=== PATIENT | male | born 1975 | race African-American/Black ===

== ENCOUNTER 2019-03-19 20:17 | Inpatient (IN) | payer BC, OTHER ==
[2019-03-19 21:17] LABS: ABSOLUTE BASOPHILS # (AUTO) 0.1 10^3/uL (0.0-0.2); ABSOLUTE EOSINOPHILS # (AUTO) 0.3 10^3/uL (0.0-0.6); ABSOLUTE LYMPHOCYTES (AUTO) 2.4 10^3/uL (0.5-4.7); ABSOLUTE MONOCYTES (AUTO) 0.7 10^3/uL (0.1-1.4); ABSOLUTE NEUT (AUTO) 7.9 10^3/uL (1.7-8.2); BASOPHILS % (AUTO) 1.2 % (0-2); EOSINOPHILS % (AUTO) 2.6 % (0-6); HEMOGLOBIN 14.4 g/dL (13.5-17.0); LYMPHOCYTES % (AUTO) 20.9 % (13-45); MEAN CORPUSCULAR HGB CONC 33.5 g/dL (32.0-36.0); MEAN CORPUSCULAR VOLUME 86 fl (80-97); MONOCYTES % (AUTO) 5.9 % (3-13); PLATELET COUNT 170 10^3/uL (150-450); RED BLOOD COUNT 4.98 10^6/uL (4.35-5.55); RED CELL DISTRIBUTION WIDTH 12.8 % (11.5-14.0); SEGMENTED NEUTROPHILS % (AUTO) 69.4 % (42-78); TOTAL CELLS COUNTED % (AUTO) 100 %; WHITE BLOOD COUNT 11.4 10^3/uL (4.0-10.5)
[2019-03-19 21:34] LABS: INTERNATIONAL RATION (INR) 1.02; PROTHROMBIN TIME 13.4 SEC (11.4-15.4)
[2019-03-19 21:35] LABS: ALBUMIN 4.2 g/dL (3.5-5.0); ALKALINE PHOSPHATASE 67 U/L (38-126); ANION GAP 11 (5-19); ASPARTATE AMINO TRANSFERASE 24 U/L (17-59); BILIRUBIN,DIRECT 0.1 mg/dL (0.0-0.4); BILIRUBIN,TOTAL 0.7 mg/dL (0.2-1.3); BLOOD UREA NITROGEN 24 mg/dL (7-20); CALCIUM 9.1 mg/dL (8.4-10.2); CARBON DIOXIDE 26 mmol/L (22-30); CHLORIDE 103 mmol/L (98-107); GLUCOSE 93 mg/dL (75-110); POTASSIUM 3.8 mmol/L (3.6-5.0); TOTAL PROTEIN 7.2 g/dL (6.3-8.2)
--- NOTE | 2019-03-19 21:47 | RADIOLOGY REPORT (SQ) ---
XR CHEST 1 VIEW CLINICAL STATEMENT: stroke protocol COMPARISON: None FINDINGS: Heart is moderately enlarged. Aorta is uncoiled. There is no focal lung consolidation or pleural effusion. No evidence of pulmonary edema or pneumothorax. IMPRESSION: No acute cardiopulmonary disease.
--- NOTE | 2019-03-19 22:08 | RADIOLOGY REPORT (SQ) ---
CT HEAD WITHOUT IV CONTRAST EXAM DATE: 03/19/2019 9:03 PM CDT HISTORY: L sided facial numbness, and arm numbness. COMPARISON: None. TECHNIQUE: CT scan of the brain without IV contrast. This exam was performed according to our departmental dose-optimization program, which includes automated exposure control, adjustment of the mA and/or kV according to patient size and/or use of iterative reconstruction technique. FINDINGS: The ventricles, cisterns, and sulci are age-appropriate. No evidence of acute infarction, intracranial hemorrhage, extra-axial fluid collection, or midline shift. No air-fluid levels are seen in the paranasal sinuses to suggest acute sinusitis. No depressed skull fracture. IMPRESSION: No acute intracranial findings.
--- NOTE | 2019-03-19 22:13 | ER Document Report ---
ED General - General Chief Complaint: Numbness of Face Stated Complaint: TINGLING TO FACE AND HANDS Time Seen by Provider: 03/19/19 21:02 TRAVEL OUTSIDE OF THE [place] IN LAST 30 DAYS: No - HPI Notes: Patient presents from work prior to arrival began to experience tingling left side of his face and tingling and numbness in his left upper and lower extremity and then he developed a motor weakness in his left lower extremity causing him to fall. He was able to hobble to the office and then his symptoms were relieved within 3 to 5 minutes without intervention. He had similar symptoms approximately 3 days ago lasted 1 to 2 minutes. He has a history of uncontrolled hypertension is not on any blood pressure medication. - Related Data Allergies/Adverse Reactions: No Known Allergies Allergy (Unverified 10/03/14 08:38) Past Medical History - Social History Smoking Status: Never Smoker Family History: Hypertension. denies: None, Reviewed & Not Pertinent, Arthrit is, CAD, CVA, DM, Hyperlipidemia, Malignancy, Thyroid Disfunction, Other Patient has suicidal ideation: No Patient has homicidal ideation: No - Past Medical History Cardiac Medical History: Reports: Hx Hypertension - reports was previously diagnosed with HTN but never treated - Immunizations Immunizations up to date: Yes Hx Diphtheria, Pertussis, Tetanus Vaccination: Yes Review of Systems - Review of Systems Constitutional: No symptoms reported EENT: No symptoms reported Cardiovascular: No symptoms reported Respiratory: No symptoms reported Gastrointestinal: No symptoms reported Genitourinary: No symptoms reported Male Genitourinary: No symptoms reported Musculoskeletal: No symptoms reported Skin: No symptoms reported Hematologic/Lymphatic: No symptoms reported Neurological/Psychological: See HPI Physical Exam - Vital signs Vitals: Temp Pulse Resp BP Pulse Ox 98.8 F 107 H 18 222/152 H 96 03/19/19 20:32 03/19/19 20:32 03/19/19 20:32 03/19/19 20:32 03/19/19 20:32 - General General appearance: Appears well, Alert - HEENT Head: Normocephalic Eyes: Normal Conjunctiva: Normal Cornea: Normal Extraocular movements intact: Yes Pupils: PERRL - Respiratory Respiratory status: No respiratory distress Chest status: Nontender Breath sounds: Normal - Cardiovascular Rhythm: Regular Heart sounds: Normal auscultation Murmur: No - Abdominal Inspection: Normal Distension: No distension Bowel sounds: Normal - Extremities General upper extremity: Normal inspection, Normal ROM General lower extremity: Normal inspection, Normal ROM - Neurological Neuro grossly intact: Yes Cognition: Normal Orientation: AAOx4 Speech: Normal Cranial nerves: Normal Cerebellar coordination: Normal Course - Re-evaluation Re-evalutation: 03/19/19 22:31 admit for TIA, hypertensive emergency - Vital Signs Vital signs: Temp Pulse Resp BP Pulse Ox 98.8 F 79 16 226/130 H 98 03/19/19 20:32 03/19/19 21:24 03/19/19 21:24 03/19/19 21:24 03/19/19 21:24 - Laboratory Result Diagrams: 03/19/19 20:57 03/19/19 20:57 Laboratory results interpreted by me: 03/19/19 03/19/19 20:57 20:57 WBC 11.4 H BUN 24 H Creatinine 2.04 H Est GFR ( Amer) 43 L Est GFR (MDRD) Non-Af 35 L - EKG Interpretation by Al EKG shows normal: Sinus rhythm Rate: Normal Rhythm: NSR Discharge - Discharge Clinical Impression: TIA (transient ischemic attack) Condition: Good Disposition: ADMITTED INPATIENT Admitting Provider: Paty (Hospitalist)
[2019-03-19] MEDS ORDERED: ASPIRIN 325 MG TABLET PO ONE (22:30)
[2019-03-19] MEDS ORDERED: LABETALOL HCL INJ 20 MG/4 ML DISP.SYRIN IV ONE (22:31)
[2019-03-19] MEDS ORDERED: NICARDIPINE HCL RTU, ISO-OS 20 MG/200 ML RTUINJ IV PRN ×2 (22:33→23:23)
[2019-03-19] MEDS ORDERED: ACETAMINOPHEN 325 MG TABLET PO PRN (23:14)
[2019-03-19] MEDS ORDERED: ONDANSETRON HCL INJ/PF 4 MG/2 ML SDV IV PRN (23:14)
[2019-03-19] MEDS ORDERED: ONDANSETRON 4 MG TAB.RAPDIS PO PRN (23:14)
[2019-03-19] MEDS ORDERED: TRAMADOL HCL 50 MG TABLET PO PRN (23:14)
[2019-03-19] MEDS ORDERED: TEMAZEPAM 15 MG CAPSULE PO PRN (23:14)
[2019-03-19] MEDS ORDERED: DOCUSATE SODIUM 100 MG CAPSULE PO PRN (23:14)
[2019-03-19] MEDS ORDERED: MAGNESIUM HYDROXIDE SUSP 30 ML UDCUP PO PRN (23:14)
[2019-03-20] MEDS: RINGERS SOLUTION,LACTATED 1,000 ML IV PRN ×2 (00:51→09:18)
[2019-03-20 01:16] LABS: APPEARANCE,URINE CLEAR; BILIRUBIN,URINE NEGATIVE (NEGATIVE); COLOR,URINE STRAW; GLUCOSE, URINE NEGATIVE (NEGATIVE); KETONES,URINE NEGATIVE (NEGATIVE); LEUKOCYTE ESTERASE,URINE NEGATIVE (NEGATIVE); NITRITE,URINE NEGATIVE (NEGATIVE); PROTEIN,URINE 100 mg/dL (NEGATIVE); URINE SPECIFIC GRAVITY 1.011; UROBILINOGEN,URINE NEGATIVE mg/dL (<2.0)
[2019-03-20] MEDS ORDERED: LOSARTAN POTASSIUM 50 MG TABLET PO ONE (02:00)
[2019-03-20] MEDS ORDERED: METOPROLOL TARTRATE 100 MG TABLET PO ONE (02:00)
--- NOTE | 2019-03-20 02:09 | PDOC H&P ---
History of Present Illness Admission Date/PCP: 03/19/2019 22:45 No local PCP Patient complains of: Left-sided tingling and weakness History of Present Illness: KELLEN TOBIAS is a 43 year old male who presented to the emergency room with acute tingling and weakness. Patient admitted to developing the abrupt onset of tingling involving his left face left upper extremity and extending into his left lower extremity. The tingling was followed within seconds by a noticeable weakness of his left lower extremity causing him to fall when he tried to initiate walking. The symptoms lasted for 3 to 5 minutes before resolving spontaneously. He admits a similar episode lasting 1 to 2 minutes 3 days earlier that was not accompanied by muscular (motor) weakness. He denies identification of any aggravating or ameliorating factors for his tingling and weakness. In the emergency room he was found to have a CT scan negative for acute intracranial hemorrhage and an otherwise unremarkable laboratory evaluation. He was noted to be severely hypertensive with an initial blood pressure of 226/130 requiring treatment with a nicardipine infusion. Patient was subsequently admitted to the ICU for further evaluation and treatment. Past Medical History Cardiac Medical History: Reports: Hypertension - reports was previously diagnosed with HTN but never treated Denies: Coronary Artery Disease, Myocardial Infarction Pulmonary Medical History: Denies: Asthma, Chronic Obstructive Pulmonary Disease (COPD) EENT Medical History: Denies: Cataracts, Ears - Hearing aids Neurological Medical History: Reports: Other - Daily headache x10 years Denies: Hemorrhagic CVA, Ischemic CVA, Migraine, Multiple Sclerosis, Seizures Endocrine Medical History: Reports: Obesity Denies: Diabetes Mellitus Type 1, Diabetes Mellitus Type 2, Hyperthyroidism, Hypothyroidism Renal/ Medical History: Denies: Chronic Kidney Disease, Nephrolithiasis Malignancy Medical History: Reports: None GI Medical History: Denies: Cirrhosis, Hepatitis Musculoskeltal Medical History: Denies: Arthritis, Gout Skin Medical History: Denies: Eczema, Psoriasis Psychiatric Medical History: Denies: Alcohol Dependency, Substance Abuse, Tobacco Dependency Traumatic Medical History: Reports: None Hematology: Denies: Anemia, Bleeding Tendencies Infectious Medical History: Reports: None Past Surgical History Past Surgical History: Reports: None Social History Information Source: Patient Lives with: Friend Smoking Status: Never Smoker Frequency of Alcohol Use: Occasional Hx Recreational Drug Use: No Drugs: None Hx Prescription Drug Abuse: No - Advance Directive Resuscitation Status: Full Code Surrogate healthcare decision maker:: Tony Smiley Family History Family History: CAD, CVA, DM, Hypertension. denies: Arthritis, Hyperlipidemia, Malignancy, Thyroid Disfunction Parental Family History Reviewed: Yes Children Family History Reviewed: No Sibling(s) Family History Reviewed.: Yes Medication/Allergy Home Medications: Lisinopril/Hydrochlorothiazide [Lisinopril-Hctz 20-12.5 mg Tab] 1 each PO DAILY #30 tablet 10/03/14 Allergies/Adverse Reactions: No Known Allergies Allergy (Unverified 10/03/14 08:38) Review of Systems Constitutional: ABSENT: chills, fever(s) Eyes: ABSENT: visual disturbances, other - Eye pain Ears: ABSENT: hearing changes, other - Ear pain Nose, Mouth, and Throat: ABSENT: mouth pain, sore throat Cardiovascular: ABSENT: chest pain, palpitations Respiratory: ABSENT: cough, dyspnea Gastrointestinal: ABSENT: abdominal pain, constipation, diarrhea, nausea, vomiting Genitourinary: ABSENT: dysuria, hematuria Musculoskeletal: ABSENT: back pain, joint swelling Integumentary: ABSENT: pruritus, rash Neurological: PRESENT: as per HPI, focal weakness, numbness, tingling. ABSENT: abnormal speech, confusion, convulsions, syncope Psychiatric: ABSENT: anxiety, depression Endocrine: ABSENT: cold intolerance, heat intolerance Hematologic/Lymphatic: ABSENT: easy bleeding, easy bruising Allergic/Immunologic: ABSENT: seasonal rhinorrhea Physical Exam Vital Signs: Temp Pulse Resp BP Pulse Ox 98.8 F 79 16 226/130 H 98 03/19/19 20:32 03/19/19 21:24 03/19/19 21:24 03/19/19 21:24 03/19/19 21:24 Intake & Output 03/17/19 03/18/19 03/19/19 23:59 23:59 23:59 Weight 98.6 kg General appearance: PRESENT: no acute distress, cooperative Head exam: PRESENT: atraumatic, normocephalic Eye exam: PRESENT: conjunctiva pink. ABSENT: conjunctival injection, nystagmus, scleral icterus Ear exam: PRESENT: normal external ear exam. ABSENT: bleeding, drainage Mouth exam: PRESENT: dry mucosa, neck supple Neck exam: ABSENT: thyromegaly, tracheal deviation Respiratory exam: PRESENT: clear to auscultation natali, symmetrical, unlabored Cardiovascular exam: PRESENT: RRR. ABSENT: clicks, gallop, rubs Pulses: PRESENT: normal radial pulses, normal dorsalis pedis pul Vascular exam: PRESENT: normal capillary refill. ABSENT: pallor GI/Abdominal exam: PRESENT: normal bowel sounds, soft Rectal exam: PRESENT: deferred Extremities exam: ABSENT: joint swelling, pedal edema Musculoskeletal exam: PRESENT: full ROM, normal inspection Neurological exam: PRESENT: alert, oriented to person, oriented to place, oriented to time, oriented to situation, CN II-XII grossly intact. ABSENT: motor sensory deficit Psychiatric exam: PRESENT: appropriate affect, normal mood Skin exam: PRESENT: dry, intact, warm. ABSENT: jaundice, rash, urticaria Results Laboratory Results: 03/19/19 20:57 03/19/19 20:57 03/19/19 03/19/19 20:57 20:57 WBC 11.4 H RBC 4.98 Hgb 14.4 Hct 43.0 MCV 86 MCH 29.0 MCHC 33.5 RDW 12.8 Plt Count 170 Seg Neutrophils % 69.4 Sodium 139.6 Potassium 3.8 Chloride 103 Carbon Dioxide 26 Anion Gap 11 BUN 24 H Creatinine 2.04 H Est GFR ( Amer) 43 L Glucose 93 Calcium 9.1 Magnesium 1.9 Total Bilirubin 0.7 AST 24 Alkaline Phosphatase 67 Total Protein 7.2 Albumin 4.2 03/19/19 20:57 Troponin I 0.048 Impressions: Head CT 03/19/19 21:03 IMPRESSION: No acute intracranial findings. Chest X-Ray 03/19/19 21:04 IMPRESSION: No acute cardiopulmonary disease. Assessment and Plan - Diagnosis (1) Hypertensive urgency Is this a current diagnosis for this admission?: Yes Plan: Patient is admitted to the ICU with a nicardipine infusion from the ER. He will be converted to oral antihypertensive agents over the early course of his hospitalization. His blood pressure be monitored closely but permissive hypertension in the systolic blood pressure 130-160 range and diastolic blood pressure in the 90-100 range will not be treated unless the patient has neurologic symptoms associated with the elevated blood pressure. LVH will be evaluated with a echocardiogram and initial treatment of patient's hypertension will be directed at minimizing left ventricular hypertrophy and the risk of congestive heart failure. (2) TIA (transient ischemic attack) Is this a current diagnosis for this admission?: Yes Plan: Patient will have a MRI of the head, MRA of the neck and an echocardiogram performed as part of his routine evaluation. He has been placed on the stroke protocol with frequent neurologic evaluations on an ongoing basis. Patient has been given aspirin in the emergency room and will be continued on Plavix. (3) Chronic renal failure, stage 3 (moderate) Is this a current diagnosis for this admission?: Yes Plan: Patient's renal failure will be considered in all treatments and therapeutic situations. A nephrology consultation will be obtained. (4) Leukocytosis Qualifiers: Leukocytosis type: unspecified Qualified Code(s): D72.829 - Elevated white blood cell count, unspecified Is this a current diagnosis for this admission?: Yes Plan: Patient's CBC will be monitored on a daily basis throughout his hospital stay. (5) Elevated troponin I level Is this a current diagnosis for this admission?: Yes Plan: Serial troponin levels will be obtained and appropriate intervention will be undertaken should there be continued rise in troponin clinically significant level. - Time Time Spent with patient: 25-34 minutes Medications reviewed and adjusted accordingly: No - No home medications - Inpatient Certification Based on my medical assessment, after consideration of the patient's comorbidities, presenting symptoms, or acuity I expect that the services needed warrant INPATIENT care.: Yes I certify that my determination is in accordance with my understanding of Medicare's requirements for reasonable and necessary INPATIENT services [42 CFR 412.3e].: Yes Medical Necessity: Need Close Monitoring Due to Risk of Patient Decompensation, Need For Continuous Telemetry Monitoring, Need for Neurological Checks, Risk of Complication if Not Cared For in Hospital, Risk of Diagnosis Which Will Require Inpatient Eval/Care/Monitoring
[2019-03-20 02:58] LABS: HEMATOCRIT 42.9 % (37.9-51.0); HEMOGLOBIN 14.4 g/dL (13.5-17.0); MEAN CORPUSCULAR HEMOGLOBIN 28.9 pg (27.0-33.4); MEAN CORPUSCULAR HGB CONC 33.5 g/dL (32.0-36.0); MEAN CORPUSCULAR VOLUME 86 fl (80-97); PLATELET COUNT 154 10^3/uL (150-450); RED BLOOD COUNT 4.98 10^6/uL (4.35-5.55); WHITE BLOOD COUNT 10.9 10^3/uL (4.0-10.5)
[2019-03-20 03:10] LABS: ALBUMIN 3.8 g/dL (3.5-5.0); ALKALINE PHOSPHATASE 64 U/L (38-126); ANION GAP 7 (5-19); ASPARTATE AMINO TRANSFERASE 22 U/L (17-59); BILIRUBIN,DIRECT 0.1 mg/dL (0.0-0.4); BILIRUBIN,TOTAL 1.2 mg/dL (0.2-1.3); BLOOD UREA NITROGEN 20 mg/dL (7-20); CALCIUM 8.8 mg/dL (8.4-10.2); CARBON DIOXIDE 26 mmol/L (22-30); CHLORIDE 104 mmol/L (98-107); CHOLESTEROL 206.97 mg/dL (0-200); CREATINE KINASE 362 U/L (55-170); GLUCOSE 111 mg/dL (75-110); POTASSIUM 3.3 mmol/L (3.6-5.0); TOTAL PROTEIN 6.6 g/dL (6.3-8.2); TRIGLYCERIDES 84 mg/dL (<150)
[2019-03-20 03:21] LABS: DIRECT LDL 183 mg/dL (<100)
[2019-03-20 03:22] LABS: CREATINE KINASE MB 1.87 ng/mL (<4.55); TROPONIN I 0.051 ng/mL
[2019-03-20] MEDS: HEPARIN SOD (PORCINE) 5,000 UNIT/ML 1 ML VIAL SUBCUT SCH ×2 (05:43→15:52)
[2019-03-20] MEDS: POTASSIUM CHLORIDE 20 MEQ/50 ML RTU IV SCH ×2 (05:43→08:04)
--- NOTE | 2019-03-20 07:15 | EKG REPORT ---
SEVERITY:- ABNORMAL ECG - SINUS TACHYCARDIA ATRIAL PREMATURE COMPLEX LEFT ATRIAL ABNORMALITY LVH WITH SECONDARY REPOLARIZATION ABNORMALITY : Confirmed by: Tone Nicolas MD 20-Mar-2019 07:15:05
--- NOTE | 2019-03-20 07:16 | EKG REPORT ---
SEVERITY:- ABNORMAL ECG - SINUS TACHYCARDIA MULTIPLE ATRIAL PREMATURE COMPLEXES LEFT ATRIAL ABNORMALITY LVH WITH SECONDARY REPOLARIZATION ABNORMALITY BORDERLINE PROLONGED QT INTERVAL : Confirmed by: Tone Nicolas MD 20-Mar-2019 07:15:29
[2019-03-20 09:46] LABS: CREATINE KINASE MB 1.84 ng/mL (<4.55); TROPONIN I 0.049 ng/mL
[2019-03-20] MEDS ORDERED: METOPROLOL SUCCINATE 50 MG TAB.SR.24H PO SCH (10:00)
[2019-03-20] MEDS ORDERED: CLOPIDOGREL BISULFATE 75 MG TABLET PO SCH (10:00)
[2019-03-20] MEDS ORDERED: LOSARTAN POTASSIUM 50 MG TABLET PO SCH (10:00)
[2019-03-20] MEDS ORDERED: ASPIRIN 81 MG TABLET, CHEWABLE PO SCH (10:00)
[2019-03-20] MEDS ORDERED: HYDRALAZINE HCL INJ/PF 20 MG/1 ML SDV IV PRN (10:10)
[2019-03-20] MEDS ORDERED: ASPIRIN 81 MG TABLET, CHEWABLE ONE (10:11)
--- NOTE | 2019-03-20 10:29 | PDOC PROGRESS REPORT ---
Subjective Progress Note for:: 03/20/19 Subjective:: Mr. Odonnell is a 43 yo man with HTN who takes no home meds who was admitted last night with left arm numbness/tingling and weakness. His SBP upon presentation was 220. He was started on a Cardene drip and admitted to the ICU. Today, pt is off the cardene drip and his SBP is in the 130s. He has no weakness or numbness. He states he knows he had HTN but did not take any BP meds. He does not have a PCP. He denies smoking cigarattes, drinking excessive ETOH, or doing illegal drugs. Denies any chest pain or shortness of breath. Reason For Visit: HYPERTENSIVE URGENCY, TIA, CKD STAGE III, ELEVATED Physical Exam Vital Signs: Temp Pulse Resp BP Pulse Ox 97.5 F 66 22 H 130/93 H 98 03/20/19 08:00 03/20/19 10:00 03/20/19 10:00 03/20/19 10:00 03/20/19 10:00 Intake & Output 03/19/19 03/20/19 03/21/19 06:59 06:59 06:59 Intake Total 234 1050 Output Total 0 Balance 234 1050 Weight 98.6 kg General appearance: PRESENT: no acute distress, well-developed, well-nourished Head exam: PRESENT: atraumatic, normocephalic Respiratory exam: PRESENT: clear to auscultation natali Cardiovascular exam: PRESENT: RRR Additonal comments: soft, NTND, no rebound, no guarding Additional comments: no edema Neurological exam: PRESENT: alert, altered, awake, oriented to person, oriented to place, CN II-XII grossly intact Additional comments: normal strength Results Laboratory Results: 03/20/19 02:44 03/20/19 02:44 03/19/19 03/19/19 03/20/19 20:57 20:57 01:00 WBC 11.4 H RBC 4.98 Hgb 14.4 Hct 43.0 MCV 86 MCH 29.0 MCHC 33.5 RDW 12.8 Plt Count 170 Seg Neutrophils % 69.4 Sodium 139.6 Potassium 3.8 Chloride 103 Carbon Dioxide 26 Anion Gap 11 BUN 24 H Creatinine 2.04 H Est GFR ( Amer) 43 L Glucose 93 Calcium 9.1 Magnesium 1.9 Total Bilirubin 0.7 AST 24 Alkaline Phosphatase 67 Total Protein 7.2 Albumin 4.2 Triglycerides Cholesterol LDL Cholesterol Direct VLDL Cholesterol HDL Cholesterol Urine Color STRAW Urine Appearance CLEAR Urine pH 7.0 Ur Specific [place] 1.011 Urine Protein 100 H Urine Glucose (UA) NEGATIVE Urine Ketones NEGATIVE Urine Blood NEGATIVE Urine Nitrite NEGATIVE Ur Leukocyte Esterase NEGATIVE Urine WBC (Auto) 1 Urine RBC (Auto) 1 03/20/19 03/20/19 02:44 02:44 WBC 10.9 H RBC 4.98 Hgb 14.4 Hct 42.9 MCV 86 MCH 28.9 MCHC 33.5 RDW 13.0 Plt Count 154 Seg Neutrophils % Sodium 137.4 Potassium 3.3 L Chloride 104 Carbon Dioxide 26 Anion Gap 7 BUN 20 Creatinine 1.68 H Est GFR ( Amer) 54 L Glucose 111 H Calcium 8.8 Magnesium Total Bilirubin 1.2 AST 22 Alkaline Phosphatase 64 Total Protein 6.6 Albumin 3.8 Triglycerides 84 Cholesterol 206.97 H LDL Cholesterol Direct 183 H VLDL Cholesterol 17.0 HDL Cholesterol 34 L Urine Color Urine Appearance Urine pH Ur Specific [place] Urine Protein Urine Glucose (UA) Urine Ketones Urine Blood Urine Nitrite Ur Leukocyte Esterase Urine WBC (Auto) Urine RBC (Auto) 03/19/19 03/20/19 03/20/19 20:57 02:44 02:44 Creatine Kinase 362 H CK-MB (CK-2) 1.87 Troponin I 0.048 0.051 03/20/19 03/20/19 08:59 08:59 Creatine Kinase 294 H CK-MB (CK-2) 1.84 Troponin I 0.049 EKG Comments: EKG: sinus tachycardia, LVH, no ST elevation Impressions: Head CT 03/19/19 21:03 IMPRESSION: No acute intracranial findings. Chest X-Ray 03/19/19 21:04 IMPRESSION: No acute cardiopulmonary disease. Status: Imported from [facility] Assessment & Plan - Diagnosis (1) TIA (transient ischemic attack) Is this a current diagnosis for this admission?: Yes (2) Hypertensive urgency Is this a current diagnosis for this admission?: Yes (3) RAN (acute kidney injury) Is this a current diagnosis for this admission?: Yes (4) Chronic renal failure, stage 3 (moderate) Is this a current diagnosis for this admission?: Yes - Plan Summary Plan Summary: Assessment: 43 yo man with TIA, hypertensive urgency, CKD, RAN Plan: 1. Respiratory: stable on room air 2. CV: hypertensive urgency, resolved. Pt is off cardene. Will d/c the cozaar in the setting of his RAN. Will d/c the toprol XL at 200 mg daily. SBP is in the 130s and pulse is in the 60s. WIll start norvasc 10 mg daily. Troponins negative. EKG shows LVH. Echo pending. 3. Neuro: TIA. Hypertensive urgency. Will d/c plavix and start asa. MRI and MRA pending. Echo pending. 4. ID: leukocytosis, resolving 5. Renal: RAN, resolving. CKD. Cr has decreased to 1.695. Will order renal US. Renal consulted. 6. Nutrition: cardiac diet 7. Prophylaxis: sq heparin 8. Disposition: stable for transfer out of the ICU
[2019-03-20 10:32] LABS: URINE AMPHETAMINES SCREEN NEGATIVE; URINE BARBITURATES SCREEN NEGATIVE; URINE BENZODIAZEPINES SCREEN NEGATIVE; URINE COCAINE SCREEN NEGATIVE; URINE MARIJUANA (THC) SCREEN NEGATIVE; URINE METHADONE SCREEN NEGATIVE; URINE PHENCYCLIDINE SCREEN NEGATIVE
[2019-03-20] MEDS ORDERED: AMLODIPINE BESYLATE 10 MG TABLET PO SCH (11:00)
[2019-03-20 12:35] LABS: ANION GAP 9 (5-19); BLOOD UREA NITROGEN 21 mg/dL (7-20); CALCIUM 9.2 mg/dL (8.4-10.2); CARBON DIOXIDE 25 mmol/L (22-30); CHLORIDE 104 mmol/L (98-107); GLUCOSE 95 mg/dL (75-110)
[2019-03-20 12:46] LABS: POTASSIUM 4.4 mmol/L (3.6-5.0)
--- NOTE | 2019-03-20 13:11 | PDOC CONSULTATION ---
Consultation Consult Date: 03/20/19 Provider Consulted: DEWEY MILLS Consult reason:: I was asked to see the patient due to abnormal kidney function. History of Present Illness Admission Date/PCP: 03/19/19 23:37 History of Present Illness: KELLEN TOBIAS is a 43 year old male with history of hypertension but not on treatment who presented to the emergency room yesterday because of a 3-minute episode of left side and is tingling and weakness involving his left side of the face, left arm up to his left leg. This resolved spontaneously. In the emergency room, initial evaluation showed a head CT scan which was negative for any pathology nor acute intracranial abnormality. However he was noted to be very hypertensive with 226/130 requiring initiation of nicardipine drip. Initial labs also showed a BUN of 24, creatinine of 2.04 with GFR of 43. His previous blood work was years ago on October 03, 2014 on our records here which showed a normal kidney function with BUN of 12, creatinine of 1.07. His urinalysis showed protein of 100 without any blood. His chest x-ray was unremarkable. His echocardiogram is still pending. Patient's blood pressure improved and is currently controlled. Nicardipine drip is been discontinued and patient was started on oral medications. On further questioning the patient he said he was diagnosed with hypertension in 2011 but has never been on medications he said he was given some blood pressure medications samples at one point but never really had maintenance prescription for it. He also does not see a regular primary care physician anyways since he got out of the [facility] in 2011. Is currently doing well and does not have any more of the left-sided weakness or numbness. He admits having some nocturia for the last couple months but aside from that denies any problem with urination. He denies any blood in the urine nerve foamy urine. He denies any known history of kidney issues in the past. He denies any history of kidney stones, no history of hepatitis, no history of heart procedure including cardiac catheterization, no NSAID abuse only occasional intake of fat for headache nor administration of contrast. He currently feels fine. 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 Lives with: Friend Smoking Status: Never Smoker Frequency of Alcohol Use: Occasional Hx Recreational Drug Use: No Drugs: None Hx Prescription Drug Abuse: No - Advance Directive Resuscitation Status: Full Code Family History Family History: DM - Paternal grandmother, Hypertension Family History: No family history of kidney disease. Parental Family History Reviewed: Yes Children Family History Reviewed: Yes Sibling(s) Family History Reviewed.: Yes Medication/Allergy Home Medications: No Home Medications 03/20/19 Allergies/Adverse Reactions: No Known Allergies Allergy (Unverified 10/03/14 08:38) Review of Systems All systems: reviewed and no additional remarkable complaints except as stated Review of Systems: Constitutional: ABSENT: chills, fatigue, fever(s), weight gain, weight loss; admits headache Eyes: ABSENT: visual disturbances Ears: ABSENT: hearing changes Cardiovascular: ABSENT: chest pain, dyspnea on exertion, edema, orthropnea, palpitations Respiratory: ABSENT: cough, dyspnea, hemoptysis Gastrointestinal: ABSENT: abdominal pain, constipation, diarrhea, hematemesis, hematochezia, nausea, vomiting Genitourinary: ABSENT: dysuria, hematuria Musculoskeletal: ABSENT: joint swelling Integumentary: ABSENT: rash, wounds Neurological: ABSENT: abnormal gait, abnormal speech, confusion, dizziness, syncope; presented with left side tingling and weakness which is currently resolved Psychiatric: ABSENT: anxiety, depression Endocrine: ABSENT: cold intolerance, heat intolerance, polydipsia, polyuria Hematologic/Lymphatic: ABSENT: easy bleeding, easy bruising, lymphadenopathy Physical Exam Vital Signs: Temp Pulse Resp BP Pulse Ox 97.7 F 69 23 H 125/89 H 99 03/20/19 12:00 03/20/19 12:00 03/20/19 12:00 03/20/19 12:00 03/20/19 12:00 Intake & Output 03/19/19 03/20/19 03/21/19 06:59 06:59 06:59 Intake Total 234 1097 Output Total 0 Balance 234 1097 Weight 98.6 kg Exam: General appearance: No acute distress, cooperative, well-developed, well- nourished Head exam: PRESENT: atraumatic, normocephalic Eye exam: PRESENT: Conjunctiva [place], EOMI, PERRLA. ABSENT: conjunctival inj ection, scleral icterus Mouth exam: PRESENT: moist, neck supple, tongue midline Neck exam: PRESENT: full ROM. ABSENT: carotid bruit, JVD, lymphadenopathy, thyromegaly Respiratory exam: PRESENT: clear to auscultation bilaterally. ABSENT: rales, rhonchi, stridor, wheezes Cardiovascular exam: PRESENT: RRR, +S1, +S2. ABSENT: systolic murmur Pulses: PRESENT: normal radial pulses, normal dorsalis pedis pulses GI/Abdominal exam: PRESENT: normal bowel sounds, soft. ABSENT: guarding, mass, tenderness Rectal exam: Deferred Extremities exam: PRESENT: full ROM. ABSENT: calf tenderness, pedal edema Musculoskeletal: PRESENT: full ROM. ABSENT: deformity Neurological exam: PRESENT: alert, Awake, Oriented to person, Oriented to place, Oriented to time, reflexes normal, CN II-XII grossly intact. ABSENT: motor sensory deficit Psychiatric exam: PRESENT: appropriate affect, normal mood. ABSENT: homicidal ideation, suicidal ideation Skin exam: PRESENT: intact, dry, warm. ABSENT: rash Results Laboratory Results: 03/20/19 02:44 03/20/19 11:51 03/19/19 03/19/19 03/20/19 20:57 20:57 01:00 WBC 11.4 H RBC 4.98 Hgb 14.4 Hct 43.0 MCV 86 MCH 29.0 MCHC 33.5 RDW 12.8 Plt Count 170 Seg Neutrophils % 69.4 Sodium 139.6 Potassium 3.8 Chloride 103 Carbon Dioxide 26 Anion Gap 11 BUN 24 H Creatinine 2.04 H Est GFR ( Amer) 43 L Glucose 93 Calcium 9.1 Magnesium 1.9 Total Bilirubin 0.7 AST 24 Alkaline Phosphatase 67 Total Protein 7.2 Albumin 4.2 Triglycerides Cholesterol LDL Cholesterol Direct VLDL Cholesterol HDL Cholesterol Urine Color STRAW Urine Appearance CLEAR Urine pH 7.0 Ur Specific [place] 1.011 Urine Protein 100 H Urine Glucose (UA) NEGATIVE Urine Ketones NEGATIVE Urine Blood NEGATIVE Urine Nitrite NEGATIVE Ur Leukocyte Esterase NEGATIVE Urine WBC (Auto) 1 Urine RBC (Auto) 1 03/20/19 03/20/19 03/20/19 02:44 02:44 11:51 WBC 10.9 H RBC 4.98 Hgb 14.4 Hct 42.9 MCV 86 MCH 28.9 MCHC 33.5 RDW 13.0 Plt Count 154 Seg Neutrophils % Sodium 137.4 137.9 Potassium 3.3 L 4.4 D Chloride 104 104 Carbon Dioxide 26 25 Anion Gap 7 9 BUN 20 21 H Creatinine 1.68 H 1.63 H Est GFR ( Amer) 54 L 56 L Glucose 111 H 95 Calcium 8.8 9.2 Magnesium 2.0 Total Bilirubin 1.2 AST 22 Alkaline Phosphatase 64 Total Protein 6.6 Albumin 3.8 Triglycerides 84 Cholesterol 206.97 H LDL Cholesterol Direct 183 H VLDL Cholesterol 17.0 HDL Cholesterol 34 L Urine Color Urine Appearance Urine pH Ur Specific [place] Urine Protein Urine Glucose (UA) Urine Ketones Urine Blood Urine Nitrite Ur Leukocyte Esterase Urine WBC (Auto) Urine RBC (Auto) 03/19/19 03/20/19 03/20/19 20:57 02:44 02:44 Creatine Kinase 362 H CK-MB (CK-2) 1.87 Troponin I 0.048 0.051 03/20/19 03/20/19 08:59 08:59 Creatine Kinase 294 H CK-MB (CK-2) 1.84 Troponin I 0.049 Impressions: Head CT 03/19/19 21:03 IMPRESSION: No acute intracranial findings. Chest X-Ray 03/19/19 21:04 IMPRESSION: No acute cardiopulmonary disease. Assessment & Plan - Diagnosis (1) RAN (acute kidney injury) Is this a current diagnosis for this admission?: Yes Plan: Patient is currently nonoliguric. The acute worsening of his kidney function is most likely secondary to the hemodynamic factors related to his hypertensive urgency and presentation. Kidney function is currently showing improvement. It is uncertain if the patient does have underlying chronic kidney disease which if he does have his most likely secondary to hypertensive nephrosclerosis. He has minimal proteinuria and urinalysis without any hematuria. Patient does not need any renal replacement therapy. Continue to monitor kidney function. If the patient's kidney function stabilized then that is most likely what his baseline kidney function as. If he does end up with an abnormal baseline kidney function then he will need to follow-up with nephrology as an outpatient. Advised patient regarding importance of blood pressure control to prevent further injury to his kidneys. I advised him against NSAIDs as well. Renal ultrasound is ordered. We will check his urine for microalbumin to creatinine ratio, check serum phosphorus and PTH. Upon discharge we will be happy to see the patient in our office if he ends up with an abnormal baseline kidney function. (2) Hypertensive urgency Is this a current diagnosis for this admission?: Yes Plan: Blood pressure currently controlled with current regimen. Agreed to hold ARB or PRISCILLA inhibitor at this time. However once stable this could be an option. Once he stabilized I would put the patient on hydrochlorothiazide 25 mg daily in neal tion to his amlodipine. (3) TIA (transient ischemic attack) Is this a current diagnosis for this admission?: Yes Plan: Currently asymptomatic. - Notes Notes: Thank you very much for this consultation. - Time Time Spent: 50 to 70 Minutes
[2019-03-20 15:34] LABS: CREATINE KINASE MB 1.6 ng/mL (<4.55); TROPONIN I 0.03 ng/mL
--- NOTE | 2019-03-20 15:37 | RADIOLOGY REPORT (SQ) ---
EXAM DESCRIPTION: MRA NECK WITHOUT COMPLETED DATE/TIME: 03/20/2019 2:56 pm REASON FOR STUDY: TIA COMPARISON: None. TECHNIQUE: Axial 2-D volume acquisition imaging through the extracranial carotid and vertebral arter ies with reformatting using 3-D MIPS. LIMITATIONS: None. FINDINGS: RIGHT CAROTID ARTERY: No stenosis or occlusive changes. Limited visualization of the orig in. LEFT CAROTID ARTERY: No stenosis or occlusive changes. Limited visualization of the origin. VERTEBRAL ARTERY: The extracranial portions of the vertebral basilar system are preserved without aimee nosis. No aneurysmal dilatation or dissection is seen. OTHER: No other significant finding. IMPRESSION: NO SIGNIFICANT STENOSIS. COMMENT: Quality ID #[id number]: Measurements of distal internal carotid diameter were used as the denomin ator for stenosis measurement. TECHNICAL DOCUMENTATION: JOB ID: [id number] [employer]- All Rights Reserved Reading location - IP/workstation name: [email or web address]
--- NOTE | 2019-03-20 15:39 | RADIOLOGY REPORT (SQ) ---
EXAM DESCRIPTION: MRI HEAD WITHOUT COMPLETED DATE/TIME: 03/20/2019 2:56 pm REASON FOR STUDY: TIA COMPARISON: None. TECHNIQUE: Multiplanar imaging includes non-contrasted T1, T2, FLAIR, and diffusion with ADC map seq uences. Images stored on PACS. LIMITATIONS: None. FINDINGS: ANATOMY: No anomalies. Normal vascular flow voids. Pituitary fossa normal. CSF SPACES: Normal in size and contour. No hemorrhage. CEREBRUM: Sulci and gyri normal in size and contour. Normal white matter signal on FLAIR imaging. No evidence of hemorrhage, mass, or extraaxial fluid collection. POSTERIOR FOSSA: No signal alteration. No hemorrhage. No edema, masses or mass effect. Internal shaun tory canals, cerebello-pontine angles, mastoids normal. DIFFUSION IMAGING: Negative for acute or sub-acute infarction. ORBITS: No masses. Globes normal. PARANASAL SINUSES: Mucous retention cyst in the right maxillary sinus. OTHER: No other significant finding. IMPRESSION: Right maxillary sinus disease. No acute intracranial imaging findings. EVIDENCE OF ACUTE STROKE: NO. TECHNICAL DOCUMENTATION: JOB ID: [id number] [employer]- All Rights Reserved Reading location - IP/workstation name: [email or web address]
--- NOTE | 2019-03-20 16:02 | PDOC DISCHARGE SUMMARY ---
General - Admit/Disc Date/PCP Admission Date/Primary Care Provider: 03/19/19 23:37 Discharge Date: 03/20/19 - Discharge Diagnosis (1) TIA (transient ischemic attack) Is this a current diagnosis for this admission?: Yes (2) Hypertensive urgency Is this a current diagnosis for this admission?: Yes (3) RAN (acute kidney injury) Is this a current diagnosis for this admission?: Yes (4) Chronic renal failure, stage 3 (moderate) Is this a current diagnosis for this admission?: Yes - Additional Information Resuscitation Status: Full Code Prescriptions: Aspirin [Adult Low Dose Aspirin EC] 81 mg PO DAILY #30 tablet. Atorvastatin Calcium [Lipitor 20 mg Tablet] 20 mg PO QHS #30 tablet Amlodipine Besylate [Norvasc 10 mg Tablet] 10 mg PO DAILY #30 tablet Home Medications: Amlodipine Besylate [Norvasc 10 mg Tablet] 10 mg PO DAILY #30 tablet 03/20/19 Aspirin [Adult Low Dose Aspirin EC] 81 mg PO DAILY #30 tablet. 03/20/19 Aspirin [Aspirin 81 mg Chewable Tablet] 81 mg PO DAILY tab.chew 03/20/19 Atorvastatin Calcium [Lipitor 20 mg Tablet] 20 mg PO QHS #30 tablet 03/20/19 History of Present Illness History of Present Illness: KELLEN TOBIAS is a 43 year old male with HTN on no home meds. He presented to the ED on 03/19/19 c/o left arm numbness and weakness. SBP was found to be over 220. Head CT was negative. Pt was started on Cardene and admitted to the ICU. Hospital Course Hospital Course: Pt was started on oral BP meds and the Cardene was stopped. He was started on Norvasc 10. MRI of head and MRA of neck were negative. Pt was started on asa 81 mg as secondary prevention for his TIA. Pt was found to have RAN with a Cr of 2.04. His Cr decreased to 1.68 today. Nephrology was consulted. Echo and renal US were ordered and are pending at the time of discharge. Pt has been counseled on the importance of taking his BP medications and on the importance of avoiding salt and adhering to a heart healthy diet. Pt has been instructed to follow up with Dr. Fregoso in 5-7 days. Physical Exam Vital Signs: Temp Pulse Resp BP Pulse Ox 97.7 F 69 17 127/93 H 96 09/18/19 12:00 03/20/19 12:00 03/20/19 15:00 03/20/19 14:47 03/20/19 15:00 Intake & Output 03/19/19 03/20/19 03/21/19 06:59 06:59 06:59 Intake Total 234 1097 Output Total 0 Balance 234 1097 Weight 98.6 kg Physical Exam: please refer to the progress note from today. His SBP is in the 120s. Results Laboratory Results: 03/20/19 02:44 03/20/19 11:51 03/19/19 03/19/19 03/20/19 20:57 20:57 01:00 WBC 11.4 H RBC 4.98 Hgb 14.4 Hct 43.0 MCV 86 MCH 29.0 MCHC 33.5 RDW 12.8 Plt Count 170 Seg Neutrophils % 69.4 Sodium 139.6 Potassium 3.8 Chloride 103 Carbon Dioxide 26 Anion Gap 11 BUN 24 H Creatinine 2.04 H Est GFR ( Amer) 43 L Glucose 93 Calcium 9.1 Phosphorus Magnesium 1.9 Total Bilirubin 0.7 AST 24 Alkaline Phosphatase 67 Total Protein 7.2 Albumin 4.2 Triglycerides Cholesterol LDL Cholesterol Direct VLDL Cholesterol HDL Cholesterol PTH Intact Urine Color STRAW Urine Appearance CLEAR Urine pH 7.0 Ur Specific [place] 1.011 Urine Protein 100 H Urine Glucose (UA) NEGATIVE Urine Ketones NEGATIVE Urine Blood NEGATIVE Urine Nitrite NEGATIVE Ur Leukocyte Esterase NEGATIVE Urine WBC (Auto) 1 Urine RBC (Auto) 1 03/20/19 03/20/19 03/20/19 02:44 02:44 11:51 WBC 10.9 H RBC 4.98 Hgb 14.4 Hct 42.9 MCV 86 MCH 28.9 MCHC 33.5 RDW 13.0 Plt Count 154 Seg Neutrophils % Sodium 137.4 137.9 Potassium 3.3 L 4.4 D Chloride 104 104 Carbon Dioxide 26 25 Anion Gap 7 9 BUN 20 21 H Creatinine 1.68 H 1.63 H Est GFR ( Amer) 54 L 56 L Glucose 111 H 95 Calcium 8.8 9.2 Phosphorus Magnesium 2.0 Total Bilirubin 1.2 AST 22 Alkaline Phosphatase 64 Total Protein 6.6 Albumin 3.8 Triglycerides 84 Cholesterol 206.97 H LDL Cholesterol Direct 183 H VLDL Cholesterol 17.0 HDL Cholesterol 34 L PTH Intact Urine Color Urine Appearance Urine pH Ur Specific [place] Urine Protein Urine Glucose (UA) Urine Ketones Urine Blood Urine Nitrite Ur Leukocyte Esterase Urine WBC (Auto) Urine RBC (Auto) 03/20/19 03/20/19 11:51 14:56 WBC RBC Hgb Hct MCV MCH MCHC RDW Plt Count Seg Neutrophils % Sodium Potassium Chloride Carbon Dioxide Anion Gap BUN Creatinine Est GFR ( Amer) Glucose Calcium Phosphorus 3.5 Magnesium Total Bilirubin AST Alkaline Phosphatase Total Protein Albumin Triglycerides Cholesterol LDL Cholesterol Direct VLDL Cholesterol HDL Cholesterol PTH Intact 157.0 H Urine Color Urine Appearance Urine pH Ur Specific [place] Urine Protein Urine Glucose (UA) Urine Ketones Urine Blood Urine Nitrite Ur Leukocyte Esterase Urine WBC (Auto) Urine RBC (Auto) 03/19/19 03/20/19 03/20/19 20:57 02:44 02:44 Creatine Kinase 362 H CK-MB (CK-2) 1.87 Troponin I 0.048 0.051 03/20/19 03/20/19 03/20/19 08:59 08:59 14:56 Creatine Kinase 294 H 282 H CK-MB (CK-2) 1.84 Troponin I 0.049 03/20/19 14:56 Creatine Kinase CK-MB (CK-2) 1.60 Troponin I 0.030 Impressions: Head CT 03/19/19 21:03 IMPRESSION: No acute intracranial findings. Chest X-Ray 03/19/19 21:04 IMPRESSION: No acute cardiopulmonary disease. Head MRI 03/20/19 00:00 IMPRESSION: Right maxillary sinus disease. No acute intracranial imaging findings. EVIDENCE OF ACUTE STROKE: NO. Neck MRA 03/20/19 00:00 IMPRESSION: NO SIGNIFICANT STENOSIS. Status: Imported from PACS - MRI and MRA negative. Echo and renal US pending. Qualifiers - * PATIENT BEING DISCHARGED WITH ANY OF THE FOLLOWING DIAGNOSIS: No VTE patient discharged on overlapping Therapy?: No Acute Heart Failure - Is this a Heart Failure Patient?: No Plan Time Spent: Less than 30 Minutes
[2019-03-20 16:22] VITALS: BP 125/89
[2019-03-20] MEDS ORDERED: ATORVASTATIN CALCIUM 20 MG TABLET PO SCH (22:00)
--- NOTE | 2019-03-21 21:39 | XCELERA REPORT ---
[address] [address] Transthoracic Echocardiogram Report Name: KELLEN TOBIAS Age: 43 yrs Gender: Male : 1975 Patient Status: Inpatient Patient Location: ICU^606^A Study Date: 03/20/2019 09:00 AM Height: 65 in Weight: 217 lb BSA: 2.0 m2 Procedure: A two-dimensional transthoracic echocardiogram with color flow and Doppler was performed. Study Quality: Fair. Reason For Study: TIA, hypertensive urgency History: TIA, hypertensive urgency. Ordering Physician: NICOLASA KASPER Performed By: Margot Veliz Interpretation Summary There is no obvious cardiac source of embolus noted on this transthoracic echocardiogram. Follow-up with a [facility] is suggested if cardiac source is still suspected. The left ventricle is normal in size. There is moderate to severe concentric left ventricular hypertrophy. LV EF is 35% ro 40% Left ventricular systolic function is moderately reduced. Doppler measurements suggest impaired left ventricular relaxation, which is associated with grade I/IV or mild diastolic dysfunction There is moderate global hypokinesis of the left ventricle. No ASD , VSD ,or PFO seen. The right ventricle is normal in size and function. The right ventricle is not well visualized secondary to technical limitations The right atrium is normal. The left atrium is borderline dilated. There is no evidence of mitral valve prolapse. There is no vegetation seen on the mitral valve. There is no mitral valve stenosis. There is a trace to mild amount of mitral regurgitation There is no aortic valvular vegetation. There is no aortic valve stenosis There is no LVOT obstruction. No aortic regurgitation is present. There is no tricuspid stenosis. There is a trace amount of tricuspid regurgitation Unable to calculate RVSP due to insufficient TR jet. There is no pulmonic valvular stenosis. There is a mild amount of pulmonic regurgitation The aortic root is normal size. The inferior vena cava appeared normal and decreased > 50% with respiration (RAP 5-10 mmHg) There is no pericardial effusion. There is no obvious cardiac source of embolus noted on this transthoracic echocardiogram. Follow-up with a [facility] is suggested if cardiac source is still suspected MMode/2D Measurements & Calculations RVDd: 4.4 cm LVIDd: 5.6 cm FS: 25.8 % Ao root diam: 3.7 cm IVSd: 1.7 cm LVIDs: 4.1 cm EDV(Teich): Ao root area: LVPWd: 1.7 cm 150.9 ml 11.0 cm2 ESV(Teich): LA dimension: 4.1 cm 75.2 ml EF(Teich): 50.2 % LVLd ap4: 8.2 cm SV(MOD-sp4): EDV(MOD-sp4): 38.0 ml 107.0 ml LVLs ap4: 7.6 cm ESV(MOD-sp4): 69.0 ml EF(MOD-sp4): 35.5 % Doppler Measurements & Calculations MV E max phyllis: MV P1/2t max phyllis: Ao V2 max: LV V1 max P.1 cm/sec 39.8 cm/sec 85.1 cm/sec 2.2 mmHg MV A max phyllis: MV P1/2t: 84.7 msec Ao max P.9 mmHg LV V1 max: 55.9 cm/sec MVA(P1/2t): 2.6 cm2 72.1 cm/sec MV E/A: 0.70 MV dec slope: 137.5 cm/sec2 MV dec time: 0.28 sec PA V2 max: PI end-d phyllis: MV P1/2t-pr_phl: 52.6 cm/sec 145.5 cm/sec 84.7 msec PA max P.1 mmHg Left Ventricle The left ventricle is normal in size. There is moderate to severe concentric left ventricular hypertrophy. LV EF is 35% ro 40%. Left ventricular systolic function is moderately reduced. Doppler measurements suggest impaired left ventricular relaxation, which is associated with grade I/IV or mild diastolic dysfunction. There is moderate global hypokinesis of the left ventricle. There is no thrombus. No ASD , VSD ,or PFO seen. Right Ventricle The right ventricle is normal in size and function. The right ventricle is not well visualized secondary to technical limitations. Atria The right atrium is normal. The left atrium is borderline dilated. Mitral Valve There is no evidence of mitral valve prolapse. There is no vegetation seen on the mitral valve. There is no mitral valve stenosis. There is a trace to mild amount of mitral regurgitation. Aortic Valve There is no aortic valvular vegetation. There is no aortic valve stenosis. There is no LVOT obstruction. No aortic regurgitation is present. Tricuspid Valve There is no tricuspid stenosis. There is a trace amount of tricuspid regurgitation. Unable to calculate RVSP due to insufficient TR jet. Pulmonic Valve There is no pulmonic valvular stenosis. There is a mild amount of pulmonic regurgitation. Great Vessels The aortic root is normal size. The inferior vena cava appeared normal and decreased > 50% with respiration (RAP 5-10 mmHg). Effusions There is no pericardial effusion. : NICOLASA KASPER Lakshmi
== END 2019-03-20 17:16 | disposition home or self-care (01) | DRG 69 ==
LOC: ER 20:17 → EH 23:37 → ICU 03-20 01:22
PROVIDERS: ADMIT Emergency Medicine; ATTEND Internal Medicine
DX: G45.9 Transient cerebral ischemic attack, unspecified (principal); N17.9 Acute kidney failure, unspecified; I16.0 Hypertensive urgency; I12.9 Hypertensive chronic kidney disease with stage 1 through stage 4 chronic kidney disease, or unspecified chronic kidney disease; N18.3 Chronic kidney disease, stage 3 (moderate); E11.21 Type 2 diabetes mellitus with diabetic nephropathy; E11.22 Type 2 diabetes mellitus with diabetic chronic kidney disease; E66.9 Obesity, unspecified; R20.0 Anesthesia of skin; Z79.899 Other long term (current) drug therapy; Z82.49 Family history of ischemic heart disease and other diseases of the circulatory system; Z83.3 Family history of diabetes mellitus; Z82.3 Family history of stroke
CPT/HCPCS: 36415; 70450; 70547; 70551; 71045; 80053; 80061; 80307; 81001; 82550; 82553; 83735; 83970; 84100; 84484; 85025; 85027; 85610; 93005; 93010; 93306; 99285; J0360; J1644; J3480; J3490; J7120

== ENCOUNTER → 2019-05-24 | Outpatient (CLI) | payer BC ==
[2019-05-24 12:15] LABS: ANION GAP 8 (5-19); BLOOD UREA NITROGEN 17 mg/dL (7-20); CALCIUM 9.5 mg/dL (8.4-10.2); CARBON DIOXIDE 27 mmol/L (22-30); CHLORIDE 104 mmol/L (98-107); GLUCOSE 101 mg/dL (75-110); POTASSIUM 4.4 mmol/L (3.6-5.0)
== END ==
LOC: OD 11:33
PROVIDERS: ATTEND Internal Medicine Nephrology
DX: N17.9 Acute kidney failure, unspecified (principal); I10 Essential (primary) hypertension
CPT/HCPCS: 36415; 80048

== ENCOUNTER → 2019-06-14 | Outpatient (CLI) | payer BC ==
[2019-06-14 10:27] LABS: ABSOLUTE BASOPHILS # (AUTO) 0.1 10^3/uL (0.0-0.2); ABSOLUTE EOSINOPHILS # (AUTO) 0.4 10^3/uL (0.0-0.6); ABSOLUTE LYMPHOCYTES (AUTO) 2.2 10^3/uL (0.5-4.7); ABSOLUTE MONOCYTES (AUTO) 0.6 10^3/uL (0.1-1.4); ABSOLUTE NEUT (AUTO) 5.7 10^3/uL (1.7-8.2); BASOPHILS % (AUTO) 1.2 % (0-2); EOSINOPHILS % (AUTO) 4.4 % (0-6); HEMATOCRIT 45.9 % (37.9-51.0); HEMOGLOBIN 15.5 g/dL (13.5-17.0); LYMPHOCYTES % (AUTO) 24.7 % (13-45); MEAN CORPUSCULAR HEMOGLOBIN 29.1 pg (27.0-33.4); MEAN CORPUSCULAR HGB CONC 33.8 g/dL (32.0-36.0); MEAN CORPUSCULAR VOLUME 86 fl (80-97); MONOCYTES % (AUTO) 6.8 % (3-13); PLATELET COUNT 212 10^3/uL (150-450); RED BLOOD COUNT 5.33 10^6/uL (4.35-5.55); RED CELL DISTRIBUTION WIDTH 13.3 % (11.5-14.0); SEGMENTED NEUTROPHILS % (AUTO) 62.9 % (42-78); TOTAL CELLS COUNTED % (AUTO) 100 %
[2019-06-14 10:31] LABS: APPEARANCE,URINE SLIGHTLY-CLOUDY; BILIRUBIN,URINE NEGATIVE (NEGATIVE); COLOR,URINE YELLOW; GLUCOSE, URINE NEGATIVE (NEGATIVE); KETONES,URINE NEGATIVE (NEGATIVE); LEUKOCYTE ESTERASE,URINE TRACE (NEGATIVE); NITRITE,URINE NEGATIVE (NEGATIVE); PROTEIN,URINE 100 mg/dL (NEGATIVE); URINE SPECIFIC GRAVITY 1.019
[2019-06-14 10:42] LABS: ALBUMIN 4.5 g/dL (3.5-5.0); ANION GAP 12 (5-19); BLOOD UREA NITROGEN 18 mg/dL (7-20); CALCIUM 9.7 mg/dL (8.4-10.2); CARBON DIOXIDE 29 mmol/L (22-30); CHLORIDE 100 mmol/L (98-107); GLUCOSE 106 mg/dL (75-110); PHOSPHORUS 4.4 mg/dL (2.5-4.5)
[2019-06-15 12:36] LABS: CREATININE URINE 314.5 mg/dL (Not Estab.)
[2019-06-17 07:22] LABS: MICROALBUMIN URINE 871.1 ug/mL (Not Estab.)
== END ==
LOC: OD 09:53
PROVIDERS: ATTEND Internal Medicine Nephrology
DX: N17.9 Acute kidney failure, unspecified (principal); I10 Essential (primary) hypertension
CPT/HCPCS: 36415; 80069; 81001; 82043; 82306; 82570; 83970; 85025